=== PATIENT | female | born 1975 | race Hispanic/Latino ===

== ENCOUNTER 2017-11-16 21:12 | Emergency (ER) | payer SELFPAY ==
[~2017-11-16] VITALS: Ht 167.6 cm; Wt 60.0 kg
[~2017-11-16 21:12] MED LIST: MOTRIN800 MG PO; NAPROSYN500 MG PO
[2017-11-16] MEDS ORDERED: NAPROSYN500 MG PO (23:35)
[2017-11-17 00:18] VITALS: BP 113/68
== END 2017-11-17 00:20 | disposition home or self-care (01) | DRG 563 ==
LOC: ED 21:12
DX: S53.401A Unspecified sprain of right elbow, initial encounter (principal); W22.09XA Striking against other stationary object, initial encounter; Y93.E2 Activity, laundry; Y92.009 Unspecified place in unspecified non-institutional (private) residence as the place of occurrence of the external cause

== ENCOUNTER 2018-03-08 17:55 | Emergency (ER) | payer SELFPAY ==
[~2018-03-08] VITALS: Ht 167.6 cm; Wt 65.0 kg
[2018-03-08] MEDS ORDERED: TORADOL PO (18:47)
[2018-03-08] MEDS ORDERED: ZITHROMAX250 MG PO (18:47)
[2018-03-08] MEDS ORDERED: PROVENTIL HFA IN (18:47)
[2018-03-08 18:55] VITALS: BP 137/73
== END 2018-03-08 18:55 | disposition home or self-care (01) | DRG 153 ==
LOC: ED 17:55
DX: J06.9 Acute upper respiratory infection, unspecified (principal); D64.9 Anemia, unspecified; T50.906A Underdosing of unspecified drugs, medicaments and biological substances, initial encounter; Z91.128 Patient's intentional underdosing of medication regimen for other reason

== ENCOUNTER 2021-10-16 13:49 | Emergency (ER) | payer BC ==
[2021-10-16] VITALS (11 sets, daily range): BP systolic 105–145; BP diastolic 62–105
[~2021-10-16] VITALS: Ht 167.6 cm; Wt 56.8 kg
[~2021-10-16 13:49] MED LIST changes: +PROVENTIL HFA IN; +TORADOL PO; +ZITHROMAX250 MG PO
[2021-10-16 14:29] LABS: URINE BILIRUBIN - DIPSTICK NEGATIVE (NEGATIVE); URINE BLOOD DIPSTICK MODERATE (NEGATIVE); URINE COLOR YELLOW; URINE GLUCOSE - DIPSTICK NEGATIVE (NEGATIVE); URINE KETONE NEGATIVE (NEGATIVE); URINE LEUK ESTERASE NEGATIVE (NEGATIVE); URINE PH 6.5 (4.5-8.0); URINE PROTEIN - DIPSTICK NEGATIVE (NEG-TRACE)
[2021-10-16 14:31] LABS: HEMATOCRIT 37.9 % (37.0-47.0); HEMOGLOBIN 12.2 g/dl (12.0-16.0); MEAN CORPUSCULAR HGB 29.4 pG CALC (26.0-32.0); MEAN CORPUSCULAR HGB CONC 32.2 g/dL CAL (32.0-36.0); NEUT# 3.81 thou/uL (2.00-7.15); RED BLOOD COUNT 4.15 mill/uL (4.20-5.60); RED CELL DISTRI WIDTH 12.7 % (11.5-15.5)
[2021-10-16 14:33] LABS: MEAN CELL VOLUME 91.3 fL CALC (80.0-100.0)
[2021-10-16 14:33] LABS: URINE EPITHELIAL CELLS FEW EPI/hpf (0-FEW); URINE NITRITE - DIPSTICK NEGATIVE (Negative)
[2021-10-16 14:38] LABS: ALBUMIN 4.3 g/dL (3.2-5.0); ALKALINE PHOSPHATASE 57 u/l (38-126); ANION GAP 13 (6-22 (CALC)); BUN 15 mg/dL (7-17); BUN/CREATININE RATIO 21 (12-20 (CALC)); CARBON DIOXIDE 27 mmol/l (22-30); CHLORIDE 108 mmol/l (95-108); CREATININE 0.7 mg/dL (0.5-1.0); GFR FOR AFR.AMER. > 60 ML/MIN (>=60 (CALC)); GFR OTHER RACES > 60 ML/MIN (>=60 (CALC)); POTASSIUM 3.9 mmol/l (3.5-5.1); SGOT/AST 22 u/l (14-36); SODIUM 144 mmol/l (137-146); TOTAL PROTEIN 7.3 g/dL (6.3-8.2)
[2021-10-16 14:47] LABS: BILIRUBIN, TOTAL 0.6 mg/dL (0.0-1.4)
[2021-10-16] MEDS ORDERED: METHOCARBAMOL500 MG PO (16:22)
[2021-10-16] MEDS ORDERED: NAPROXEN500 MG PO (16:22)
== END 2021-10-16 16:40 | disposition home or self-care (01) | DRG 103 ==
LOC: ED 13:49
PROVIDERS: Nurse Practitioner
DX: R51.9 Headache, unspecified (principal)

== ENCOUNTER 2022-08-05 14:22 | Emergency (ER) | payer OTHER ==
[~2022-08-05] VITALS: Ht 167.6 cm; Wt 65.7 kg
[~2022-08-05 14:22] MED LIST changes: +METHOCARBAMOL500 MG PO; +NAPROXEN500 MG PO
[2022-08-05 14:31] VITALS: BP 122/70
[2022-08-05 14:45] VITALS: BP 116/58
[2022-08-05] MEDS ORDERED: CYCLOBENZAPRINE10 MG PO (16:08)
[2022-08-05] MEDS ORDERED: NAPROXEN500 MG PO (16:08)
[2022-08-05 16:36] VITALS: BP 116/58
== END 2022-08-05 16:50 | disposition home or self-care (01) | DRG 914 ==
LOC: ED 14:22
DX: S09.90XA Unspecified injury of head, initial encounter (principal); S16.1XXA Strain of muscle, fascia and tendon at neck level, initial encounter; W18.39XA Other fall on same level, initial encounter; Y92.003 Bedroom of unspecified non-institutional (private) residence as the place of occurrence of the external cause